=== PATIENT | female | born 1935 | race Caucasian/White ===

== ENCOUNTER 2024-07-05 13:39 | Emergency (ER) | payer OTHER ==
--- OUTSIDE RECORDS SUMMARY | 2024-07-05 13:43 | XMS REPORT | Continuity of Care Document ---
Author Name Unknown Address [address] [facility] [address] [place] [address] [facility] Address [address] [facility] [address] [place] [address] Care Team Providers Care Condominium Association Manager Name Role Phone KERRI JOHNSON Primary Care Physician Unavailab Kerri Mcintosh Attending Clinician Unavailable Shraddha Kaufman Attending Clinician Unavailable JOCELYNN GAINES Attending Clinician Unavail able EDIE MALONEY Attending Clinician Unavailab tico Maloney CABLE MAKEREdie Attending Clinician [phone] MARGARITA BOATENG Attending Clinician Unavailable MARGARITA BOATENG Attending Clinician Unavailable REEMA LINARES Attending Clinician Unavailable Kevin ARTILLERY SPECIALISTReema Attending Clinician [phone] Unknown, Attending Attending Clinician Unavailab Anthony Brambila Attending Clinician [phone] Unknown, Attending Attending Clinician Unavailab ANTHONY Garcia Attending Clinician Unavailable Doctor Unassigned, Harrod Attending Clinician U JOCELYNN Cary Admitting Clinician Unavail able Payers Payer Name Policy Type Policy Number Effective Date Expirati on Date Source [employer]US O [id number] 2023 00:00:00 Problems Condition Name Condition Details Condition Category Status Onset Date Resolution Date Last Treatment Date Treating Clinician Comments Source Generalize d abdominal pain Generalize d abdominal pain Disease Active 06-23 00:00: 00 [facility] Small bowel obstructio n, partial Small bowel obstructio n, partial Disease Active 06-23 00:00: 00 [facility] Abdominal malignancy Abdominal malignancy Disease Active 06-23 00:00: 00 [facility] [id number] Tinnitus of both ears Problem [facility] [id number] Mixed hyperlipid emia Problem [facility] [id number] History of arthroplas ty of left knee Problem [facility] [id number] Varicose veins with swelling Problem [facility] [id number] Seasonal allergies Problem [facility] [id number] Depression with anxiety Problem [facility] [id number] Acquired hypothyroi dism Problem [facility] [id number] Primary hypertensi on Problem [facility] [id number] Bladder spasm Problem [facility] Allergies, Adverse Reactions, Alerts Allergy Name Allergy Type Status Severity Reaction(s) Onset Date Inactive Date Treating Clinician Comments Source NO KNOWN ALLERGIE S Drug Class Active [facility] Social History Social Habit Start Date Stop Date Quantity Comments Source Sexual orientation U [facility] History of Tobacco Use [facility] Sex assigned at 1935 00:00:00 1935 00:00:00 [facility] Smoking Status Start Date Stop Date Source Tobacco smoking consumption unknown [facility] Never Smoker [facility] Medications Ordered Medication Name Filled Medication Name Start Date Stop Date Current Medication? Ordering Clinician Indication Dosage Frequency Signature (SIG) Comments Components Source iopamidol (ISOVUE 370-500 mL) injection 79 mL 06-23 21:30: 00 06-23 20:20 :00 No [id number] 79mL 79 mL, Intravenou s, ONCE, 1 dose, On Sun06/23/24 at 1530, Routine [facility] NaCl 0.9% (NS) bolus infusion 500 mL 06-23 19:00: 00 06-23 20:34 :00 No 500mL at 999 mL/hr, 500 mL, IV Infusion, ONCE, 1 dose, On Sun06/23/24 at 1300, YARELIS [facility] iopamidol (ISOVUE 370-500 mL) injection 84 mL 06-23 18:16: 00 06-23 18:30 :00 No [id number] 84mL 84 mL, Intravenou s, ONCE, 1 dose, On Sun06/23/24 at 1230, Routine [facility] ondansetron (ZOFRAN (PF)) injection 4 mg 06-23 17:15: 00 06-23 17:24 :00 No 4mg 4 mg, Slow IV Push, ONCE, 1 dose, On Sun06/23/24 at 1115, Administer over 2-5 Minutes, 2 mL [facility] cefTRIAXone (ROCEPHIN) injection 1,000 mg 06-14 23:00: 00 06-14 22:12 :00 No [id number] 1000mg [facility] amoxicillin -clavulanat e (AUGMENTIN) 875-125 mg per tablet 06-14 00:00: 00 06-24 05:59 :00 No [id number] 1{tbl} Take 1 tablet by mouth in the morning and 1 tablet in the evening. Do all this for 10 days. [facility] Losartan Potassium 100 MG Losartan Potassium 100 MG No 1{table t} QD Losartan Potassium 100 MG Levothyroxi ne Sodium 25 MCG Levothyroxi ne Sodium 25 MCG No QD Levothyrox ine Sodium 25 MCG hydroCHLORO thiazide 25 MG hydroCHLORO thiazide 25 MG No 1{table t_in_th e_morni ng} QD hydroCHLOR Othiazide 25 MG amLODIPine Besylate 5 MG amLODIPine Besylate 5 MG No 1{table t} QD amLODIPine Besylate 5 MG Venlafaxine HCl ER 75 MG Venlafaxine HCl ER 75 MG No 1{capsu le_with _food} QD Venlafaxin e HCl ER 75 MG Venlafaxine HCl ER 150 MG Venlafaxine HCl ER 150 MG No 1{capsu le_with _food} QD Venlafaxin e HCl ER 150 MG Tolterodine Tartrate 2 MG Tolterodine Tartrate 2 MG No 1{table t} BID Tolterodin e Tartrate 2 MG Simvastatin 40 MG Simvastatin 40 MG No 1{table t_in_th e_eveni ng} QD Simvastati n 40 MG Vital Signs Vital Name Observation Time Observation Value Comments Nikos forde Systolic blood pressure 2024-06-24 00:30:00 173 mm[Hg] [facility] Diastolic blood pressure 2024-06-24 00:30:00 83 mm[Hg] [facility] Heart rate 2024-06-24 00:30:00 114 /min [facility] Respiratory rate 2024-06-24 00:30:00 20 /min [facility] Oxygen saturation in Arterial blood by Pulse oximetry 2024-06-24 00:30:00 92 /min [facility] Body temperature 2024-06-23 17:00:00 36.72 Kyara [facility] Body height 2024-06-23 17:00:00 152.4 cm [facility] Body weight 2024-06-23 17:00:00 47.628 kg [facility] BMI 2024-06-23 17:00:00 20.51 kg/m2 [facility] height 2024-04-24 11:00:00 60 [in_i] Commo n [facility] weight 2024-04-24 11:00:00 110 [lb_av] Comm on [facility] bmi 2024-04-24 11:00:00 21.48 kg/m2 Comm on [facility] Body weight 2024-04-05 20:59:00 51.427 kg [facility] BMI 2024-04-05 20:59:00 22.14 kg/m2 [facility] Oxygen saturation in Arterial blood by Pulse oximetry 2024-04-05 20:59:00 97 /min [facility] Systolic blood pressure 2024-04-05 20:59:00 149 mm[Hg] [facility] Diastolic blood pressure 2024-04-05 20:59:00 79 mm[Hg] [facility] Heart rate 2024-04-05 20:59:00 97 /min [facility] Body temperature 2024-04-05 20:59:00 36.17 Kyara [facility] Respiratory rate 2024-04-05 20:59:00 17 /min [facility] Body height 2024-04-05 20:59:00 152.4 cm [facility] height 2023-12-25 13:00:00 60 [in_i] Commo n [facility] weight 2023-12-25 13:00:00 114 [lb_av] Comm on [facility] temperature 2023-12-25 13:00:00 97.2 [degF] Com mon [facility] bmi 2023-12-25 13:00:00 22.26 kg/m2 Comm on [facility] oximetry 2023-12-25 13:00:00 99 % Commo n [facility] respiratory rate 2023-12-25 13:00:00 16 /min Common [facility] blood pressure systolic 2023-12-25 13:00:00 126 mm[Hg] Common [facility] blood pressure diastolic 2023-12-25 13:00:00 64 mm[Hg] Common [facility] height 2023-12-25 13:00:00 60 [in_i] Commo n [facility] weight 2023-12-25 13:00:00 114 [lb_av] Comm on [facility] temperature 2023-12-25 13:00:00 97.2 [degF] Com [facility] bmi 2023-12-25 13:00:00 22.26 kg/m2 Comm on [facility] oximetry 2023-12-25 13:00:00 99 % Commo n [facility] respiratory rate 2023-12-25 13:00:00 16 /min [facility] blood pressure systolic 2023-12-25 13:00:00 126 mm[Hg] [facility] blood pressure diastolic 2023-12-25 13:00:00 64 mm[Hg] [facility] height 2023-12-25 13:00:00 60 [in_i] Commo n [facility] weight 2023-12-25 13:00:00 114 [lb_av] Comm on [facility] temperature 2023-12-25 13:00:00 97.2 [degF] Com mon [facility] bmi 2023-12-25 13:00:00 22.26 kg/m2 Comm on [facility] oximetry 2023-12-25 13:00:00 99 % Commo n [facility] respiratory rate 2023-12-25 13:00:00 16 /min [facility] blood pressure systolic 2023-12-25 13:00:00 126 mm[Hg] [facility] blood pressure diastolic 2023-12-25 13:00:00 64 mm[Hg] [facility] height 2023-11-05 11:00:00 60 [in_i] Commo n [facility] weight 2023-11-05 11:00:00 122.4 [lb_av] Co mmon [facility] temperature 2023-11-05 11:00:00 97.3 [degF] Com mon [facility] bmi 2023-11-05 11:00:00 23.9 kg/m2 Commo n [facility] oximetry 2023-11-05 11:00:00 98 % Commo n [facility] respiratory rate 2023-11-05 11:00:00 16 /min Common [facility] blood pressure systolic 2023-11-05 11:00:00 124 mm[Hg] [facility] blood pressure diastolic 2023-11-05 11:00:00 58 mm[Hg] Common [facility] height 2023-07-06 10:40:00 60 [in_i] Commo n [facility] weight 2023-07-06 10:40:00 123.4 [lb_av] Co mmon [facility] temperature 2023-07-06 10:40:00 97.3 [degF] Com mon [facility] bmi 2023-07-06 10:40:00 24.1 kg/m2 Commo n [facility] oximetry 2023-07-06 10:40:00 98 % Comm n [facility] respiratory rate 2023-07-06 10:40:00 16 /min Common [facility] blood pressure systolic 2023-07-06 10:40:00 134 mm[Hg] [facility] blood pressure diastolic 2023-07-06 10:40:00 62 mm[Hg] [facility] Systolic blood pressure 2023-06-14 22:01:00 153 mm[Hg] [facility] Diastolic blood pressure 2023-06-14 22:01:00 74 mm[Hg] [facility] Heart rate 2023-06-14 22:00:00 99 /min [facility] Body temperature 2023-06-14 22:00:00 36.56 Kyara [facility] Respiratory rate 2023-06-14 22:00:00 14 /min [facility] Body height 2023-06-14 22:00:00 149.9 cm [facility] Body weight 2023-06-14 22:00:00 55.157 kg [facility] BMI 2023-06-14 22:00:00 24.56 kg/m2 [facility] Oxygen saturation in Arterial blood by Pulse oximetry 2023-06-14 22:00:00 98 /min [facility] height 2023-03-23 16:00:00 60 [in_i] Commo n [facility] weight 2023-03-23 16:00:00 119 [lb_av] Comm on [facility] temperature 2023-03-23 16:00:00 97.2 [degF] Com mon [facility] bmi 2023-03-23 16:00:00 23.24 kg/m2 Comm on [facility] oximetry 2023-03-23 16:00:00 97 % Commo n [facility] respiratory rate 2023-03-23 16:00:00 16 /min [facility] blood pressure systolic 2023-03-23 16:00:00 130 mm[Hg] [facility] blood pressure diastolic 2023-03-23 16:00:00 66 mm[Hg] [facility] height 2022-12-22 15:20:00 60 [in_i] Commo n [facility] weight 2022-12-22 15:20:00 120 [lb_av] Comm on [facility] temperature 2022-12-22 15:20:00 97.3 [degF] Com [facility] bmi 2022-12-22 15:20:00 23.43 kg/m2 Comm on [facility] oximetry 2022-12-22 15:20:00 99 % Commo n [facility] respiratory rate 2022-12-22 15:20:00 16 /min [facility] blood pressure systolic 2022-12-22 15:20:00 126 mm[Hg] [facility] blood pressure diastolic 2022-12-22 15:20:00 64 mm[Hg] [facility] height 2022-12-22 15:40:00 60 [in_i] Commo n [facility] weight 2022-12-22 15:40:00 120 [lb_av] Comm on [facility] temperature 2022-12-22 15:40:00 97.3 [degF] Com [facility] bmi 2022-12-22 15:40:00 23.43 kg/m2 Comm on [facility] oximetry 2022-12-22 15:40:00 99 % Commo n [facility] respiratory rate 2022-12-22 15:40:00 16 /min Common [facility] blood pressure systolic 2022-12-22 15:40:00 126 mm[Hg] [facility] blood pressure diastolic 2022-12-22 15:40:00 64 mm[Hg] [facility] height 2022-07-25 13:20:00 60 [in_i] Commo n [facility] weight 2022-07-25 13:20:00 118.4 [lb_av] Co mmon [facility] temperature 2022-07-25 13:20:00 98.3 [degF] Com [facility] bmi 2022-07-25 13:20:00 23.12 kg/m2 Comm on [facility] oximetry 2022-07-25 13:20:00 97 % Commo n [facility] respiratory rate 2022-07-25 13:20:00 17 /min [facility] blood pressure systolic 2022-07-25 13:20:00 128 mm[Hg] [facility] blood pressure diastolic 2022-07-25 13:20:00 66 mm[Hg] [facility] height 2022-03-24 16:00:00 60 [in_i] Commo n [facility] weight 2022-03-24 16:00:00 120.0 [lb_av] Co mmon [facility] temperature 2022-03-24 16:00:00 98.4 [degF] Com [facility] bmi 2022-03-24 16:00:00 23.43 kg/m2 Comm on [facility] oximetry 2022-03-24 16:00:00 97 % Commo n [facility] respiratory rate 2022-03-24 16:00:00 15 /min Common [facility] blood pressure systolic 2022-03-24 16:00:00 130 mm[Hg] [facility] blood pressure diastolic 2022-03-24 16:00:00 64 mm[Hg] [facility] height 2021-11-22 16:00:00 60 [in_i] Commo n [facility] weight 2021-11-22 16:00:00 119.4 [lb_av] Co mmon [facility] temperature 2021-11-22 16:00:00 98.2 [degF] Com [facility] bmi 2021-11-22 16:00:00 23.32 kg/m2 Comm on [facility] oximetry 2021-11-22 16:00:00 97 % Commo n [facility] respiratory rate 2021-11-22 16:00:00 16 /min [facility] blood pressure systolic 2021-11-22 16:00:00 128 mm[Hg] [facility] blood pressure diastolic 2021-11-22 16:00:00 61 mm[Hg] [facility] height 2021-11-22 16:20:00 60 [in_i] Commo n [facility] weight 2021-11-22 16:20:00 119.4 [lb_av] Co mmon [facility] temperature 2021-11-22 16:20:00 98.2 [degF] Com mon [facility] bmi 2021-11-22 16:20:00 23.32 kg/m2 Comm on [facility] oximetry 2021-11-22 16:20:00 97 % Commo n [facility] respiratory rate 2021-11-22 16:20:00 16 /min [facility] blood pressure systolic 2021-11-22 16:20:00 128 mm[Hg] [facility] blood pressure diastolic 2021-11-22 16:20:00 61 mm[Hg] [facility] Procedures Procedure Date / Time Performed Performing Clinicia n Source CT ANGIOGRAM ABDOMEN/PELVIS 2024-06-23 20:34:24 Edie Maloney [facility] URINALYSIS 2024-06-23 20:34:00 Edie Maloney Un [facility] CT ABDOMEN PELVIS W CONTRAST 2024-06-23 18:21:05 Edie Maloney [facility] LIPASE 2024-06-23 17:18:00 Edie Maloney Un [facility] COMP. METABOLIC PANEL ([id number]) 2024-06-23 17:18:00 Edie Maloney [facility] CBC WITH DIFF 2024-06-23 17:18:[address] [facility] [facility]+ VW RIGHT 2024-04-05 21:31:44 Reema Linares [facility] ASSIGNMENT OF BENEFITS 2023-06-14 22:37:14 Docto r Unassigned, Harrod [facility] Encounters Start Date/Time End Date/Time Encounter Type Admission Type Attending Clinicians Care Facility Care Department Encounter ID Source 2023-03-22 13:59:01 [facility] [id number] [facility] 2022-07-24 14:05:02 [facility] [id number] [facility] 2022-03-23 14:02:01 Outpatient Shraddha Kaufman [facility] [id number] [facility] 2022-03-22 13:50:04 Outpatient Shraddha Kaufman [facility] [id number] [facility] 2021-11-22 15:45:02 Outpatient Shraddha Kaufman [facility] [id number] [facility] 2024-06-30 00:00:2024-06-30 00:00:00 (TEL) STLC ST[facility] [id number] [facility] 2024-06-23 20:04:00 2024-06-27 18:00:00 Inpatient JOCELYNN ROACH [facility] SANA [id number] [facility] 2024-06-24 00:00:00 2024-06-24 00:00:00 (TEL) STLC STLC [id number] [facility] 2024-06-23 11:04:00 2024-06-23 18:57:00 Emergency X EDIE MALONEY [facility] ERT [id number] [facility] 2024-06-23 11:04:00 2024-06-23 18:57:00 Emergency [facility] 1..840.114 350.1.13.10 [id number] [facility] 2024-04-24 13:00:00 2024-04-24 13:00:00 Outpatient MARGARITA LYON [facility]LE[facility] [id number] [facility] 2024-04-24 00:00:00 2024-04-24 00:00:00 OFFICE VISIT ESTAB PT LEVEL 4 [facility] [id number] [facility] 2024-04-24 00:00:00 2024-04-24 00:00:00 (TEL) [facility] [id number] [facility] 2024-04-05 15:25:39 2024-04-05 23:59:00 Outpatient R REEMA LINARES [facility] [id number] [facility] 2024-04-05 15:25:39 2024-04-05 23:59:00 Hospital Encounter Reema Linares [facility] 1..840.114 350.1.13.10 [id number] [facility] 2024-04-05 15:00:00 2024-04-05 16:07:19 Urgent Care Reema Linares Unknown, Attending [facility] 1..840.114 350.1.13.10 [id number] [facility] 2023-12-25 00:00:00 2023-12-25 00:00:00 SUB ANNUAL [facility] VIS[facility] STLMLC STL[facility]C [id number] [facility] 2023-12-25 00:00:00 2023-12-25 00:00:00 OFFICE VISIT ESTAB PT LEVEL 4 [facility]C STLMLC [id number] [facility] 2023-11-05 00:00:00 2023-11-05 00:00:00 OFFICE VISIT ESTAB PT LEVEL 4 [facility]C STLMLC [id number] [facility] 2023-07-06 00:00:00 2023-07-06 00:00:00 OFFICE VISIT ESTAB PT LEVEL 4 STLMLC STLMLC [id number] [facility] 2023-06-14 16:00:00 2023-06-14 16:20:00 Urgent Care JuddjacAnthony duarte Unknown, Attending [facility] 1..840.114 350.1.13.10 [id number] [facility] 2023-06-14 16:00:00 2023-06-14 16:00:00 Outpatient R ANTHONY CHIRINOS [facility] [id number] [facility] 2023-06-14 00:00:00 2023-06-14 00:00:00 Orders Only Doctor Unassigned, Harrod [facility] 1..840.114 350.1.13.10 [id number] [facility] 2023-03-27 00:00:00 2023-03-27 00:00:00 (TEL) STLMLC STLMLC [id number] [facility] 2023-03-26 00:00:00 2023-03-26 00:00:00 (TEL) STLMLC STLMLC [id number] [facility] 2023-03-23 00:00:00 2023-03-23 00:00:00 OFFICE VISIT ESTAB PT LEVEL 4 STLMLC STLMLC [id number] [facility] 2022-12-22 00:00:00 2022-12-22 00:00:00 OFFICE VISIT ESTAB PT LEVEL 3 STLMLC STLMLC [id number] [facility] 2022-12-22 00:00:00 2022-12-22 00:00:00 SUB ANNUAL MCR WELLNESS VISIT STLMLC STLMLC [id number] [facility] 2022-08-10 00:00:00 2022-08-10 00:00:00 (TEL) STLMLC STLMLC [id number] [facility] 2022-08-03 00:00:00 2022-08-03 00:00:00 (TEL) STLMLC STLMLC [id number] [facility] 2022-07-25 00:00:00 2022-07-25 00:00:00 OFFICE VISIT ESTAB PT LEVEL 4 STLMLC STLMLC [id number] [facility] 2022-05-12 00:00:00 2022-05-12 00:00:00 (TEL) STLMLC STLMLC [id number] [facility] 2022-03-24 00:00:00 2022-03-24 00:00:00 OFFICE VISIT EST PT LEVEL 3 STLMLC STLMLC [id number] [facility] 2021-11-22 00:00:00 2021-11-22 00:00:00 SUB ANNUAL MCR WELLNESS VISIT STLMLC STLMLC [id number] [facility] 2021-11-22 00:00:00 2021-11-22 00:00:00 OFFICE VISIT EST PT LEVEL 3 [facility] [id number] [facility] Results Test Description Test Time Test Comments Results Result Comments Source CT Angiogram abdomen/pelvis 22:58:01 EXAM: CT ANGIOGRAM ABDOMEN/PELVIS HISTORY: 89 years old Female with Hemoperitoneum on CT abdomen and pelvis COMPARISON: CT abdomen pelvis with contrast 06/23/2024 TECHNIQUE AND FINDINGS: Axial images of the abdomen and pelvis wereobtained without intravenous contrast followed by contrast-enhanced CTangiogram in the arterial and venous phases of the abdomen and pelvis. FINDINGS: LOWER THORAX: Partially visualized mediastinal and hilar calcified lymphnodes, could be sequela of calcified granulomatous disease. Moderate rightpleural effusion with adjacent lower lobe partial atelectasis. Right middlelobe atelectasis. LIVER: Liver is normal in size and nodularity along the posterior wallright hepatic lobe, could represent implants. Patchy and linear smallhyperdensity in the subcapsular region of the left hepatic lobe is seenonly seen on arterial phase, may represent perfusional changes orintrahepatic shunt. Multiple hepatic subcapsular punctate calcifications,given location, could represent calcified implants, although difficult todifferentiate from calcified granulomas. GALLBLADDER AND BILIARY TREE: The gallbladder is distended and tortuouswith a transverse diameter of 3 cm. No biliary ductal dilation. ?Nogallbladder wall thickening. SPLEEN: No splenomegaly. Multiple small calcified granulomas. PANCREAS: No ductal dilation moderate fatty infiltration of parenchyma. ADRENAL GLANDS: Thickening of the left adrenal gland. 1.3 cm right adrenalnodule with arterial enhancement and delayed washout, indeterminate. KIDNEYS: Excreted contrast is seen within collecting system. Nohydronephrosis. A 0.8 cm right renal lesion with some enhancement, couldrepresent a solid mass or complex cyst. GI TRACT: PERITONEUM AND RETROPERITONEUM AND PELVIS: No free air. There ishyperdense omental thickening, largest component measuring 6.3 x 1.4 x 4cm. Multiple additional hyperdense peritoneal and mesenteric soft tissuesin close relation to the bowel for example an irregular shape soft tissuesin the posterior pelvis as well as surrounding sigmoid and clustered ofsmall bowel in the pelvis. There is tethered appearance of bowel in thisregion (25:101). Trace perihepatic and pelvic ascites. There is dilatationof the small bowel loops in the pelvis measuring up to 3 cm, proximal withtransition (19:84) at the above-mentioned peritoneal soft tissue associatedwith clustered small bowel. Additional peritoneal upper noncalcifiedperitoneal implants are noted. The uterus is absent. At the expected location of the right ovary, there marcos 4 x 2.8 x 2.6 cm solid and cystic mass (19:101). In the left hemipelvisat the expected location of ovary, there is a heterogeneous complex cysticand solid soft tissue mass, measuring 2.7 x 3.9 x 4.2 cm (19:101).Contiguous with this mass, an elongated tubular soft tissue mass extendsinto the left inguinal region, along the course of the round ligament,measuring 1.4 x 8 cm (19:103, 29:67). These 2 adnexal masses, arecontiguous with the peritoneal/subserosal mass which is involving smallbowel and sigmoid colon. Small volume ascites is present. Note that increased density of the ascitescompared to the prior imaging today is related to a delayed enhancement ofascites. LYMPH NODES: 0.8 cm left gastric lymph node gastric lymph node,indeterminate. Lymph nodes are noted, nonspecific. ?A couple of smallinguinal lymph nodes up to 8mm, nonspecific. VESSELS: Severe calcified plaques involving abdominal aorta. Marked ostialcalcification of celiac trunk, SMA, and bilateral renal arteries with atleast moderate to severe left renal artery stenosis. No aneurysm orcritical stenosis pain BONES AND SOFT TISSUES: No suspicious lytic or sclerotic bony lesions. [facility] CT ABDOMEN PELVIS W CONTRAST 21:55:04 EXAM: CT ABDOMEN PELVIS W CONTRAST 06/23/2024 12:20 PM HISTORY: 89 years-old Female with Abdominal pain, acute, nonlocalized . COMPARISON: None. TECHNIQUE: Contiguous axial imaging from the level of the lung basesthrough the proximal thighs was performed after the administration ofintravenous nonionic iodinated contrast. Abdomen was scanned in venousphase. Corresponding coronal and sagittal MPR reconstructions wereobtained. ?Auto mA and/or iterative reconstruction were used to reduceradiation dose. FINDINGS: LOWER THORAX: ?Partially visualized atelectatic right middle lobe. Moderate right pleural effusion. Multiple calcified mediastinal lymph nodeslikely indicates prior granulomatous disease. A 4 mm left lower lobe lungnodule could also be sequela of chronic granulomatous disease. LIVER AND BILIARY: ?The liver is normal in size with slightly nodularcontour. 2 subcentimeter hepatic dome hypodensities, too small tocharacterize. The gallbladder appears unremarkable. No radiopaquegallstones are seen. No intra or extrahepatic biliary ductal dilation isvisualized. PANCREAS: Normal morphology and enhancement. No ductal dilation or massesare visualized. SPLEEN: The spleen appears unremarkable apart from multiple small calcifiedgranulomas. ADRENAL GLANDS: 1.3 cm rim-enhancing right adrenal mass may represent acyst. KIDNEYS, URETERS, AND BLADDER: ?Normal renal size, morphology, andenhancement. No solid masses. No stones or hydronephrosis. The bladder isadequately distended and appears unremarkable. REPRODUCTIVE ORGANS: Normal reproductive organs. GI TRACT AND PERITONEUM: The distal small bowel loops in the pelvis arefluid-filled slightly distended measuring up to 2.5 cm. There is hyperdenseomental thickening, largest component measuring 6.3 x 1.4 x 4 cm. Multipleadditional hyperdense peritoneal and mesenteric soft tissues in closerelation to the bowel for example in the posterior lower as well as pelvisalong the sigmoid wall which are probably results in thickening of thesigmoid wall.. The soft tissues are either linear and branching or patchyand nodular. There is no bowel obstructionThe appendix appears unremarkable. No intra-abdominal free air isvisualized. tion. Trace free fluid in the pelvis which likely representshemoperitoneum.S mall volume perihepatic and pelvic ascites. VESSELS: Portal, splenic, and superior mesenteric veins are patent.Visceral arteries are patent. No abdominal aortic aneurysm. Moderate tosevere atherosclerotic calcifications. LYMPH NODES: Lymph nodes in the retroperitoneal, mesenteric, and iliacareas are not enlarged. BONES AND SOFT TISSUES: No suspicious sclerotic or lytic osseous lesions.No fractures. Multilevel disc space and facet arthropathies evidenced byosteophytosis, joint space narrowing, and vacuum phenomena. [facility] Test Item Value Reference Range Interpretation Comme nts LIPASE (test code = 5993959610) 55 U/L 0-220 Lab Interpretation (test cod e = 45969-8) [facility] [id number] 17:41:56* Test Item Value Reference Range Interpretation Comme nts WBC (test code = 6690-2) 10.32 4.30-11.10 RBC (test code = 789-8) 5.59 3.93-5.25 H HGB (test code = 718-7) 14.9 g/dL 11.6-15.0 HCT (test code = 4544-3) 46.1 % 35.7-45.2 H MCV (test code = 787-2) 82.5 fL 80.6-95.5 MCH (test code = 785-6) 26.7 pg 25.9-32.8 MCHC (test code = 786-4) 32.3 g/dL 31.6-35.1 RDW-SD (test code = 25099-7) 44.8 fL 39.0-49.9 RDW-CV (test code = 788-0) 15.1 % 12.0-15.5 PLT (test code = 777-3) 519 166-358 H MPV (test code = 05224-9) 10.6 fL 9.5-12.9 NRBC/100 WBC (test code = 7183896928) 0.0 0.0-10.0 NRBC x10^3 (test code = 6625898667) See_Comment [Automated messa ge] The system which generated this result transmitted reference range: 10*3/?L. The reference range was not used to interpret this result as normal/abnormal. GRAN MAT (NEUT) % (test code = 770-8) 79.5 % IMM GRAN % (test code = 9531113057) 0.40 % LYMPH % (test code = 736-9) 13.1 % MONO % (test code = 5905-5) 6.3 % EOS % (test code = 713-8) 0.2 % BASO % (test code = 706-2) 0.5 % GRAN MAT x10^3(ANC) (test code = 0401551888) 8.21 10*3/uL 1.88-7.09 H IMM GRAN x10^3 (test code = 3102114036) 0.04 10*3/uL 0.00-0.06 LYMPH x10^3 (test code = 731-0) 1.35 10*3/uL 1.32-3.29 MONO x10^3 (test code = 742-7) 0.65 10*3/uL 0.33-0.92 EOS x10^3 (test code = 711-2) 0.03-0.39 L BASO x10^3 (test code = 704-7) 0.05 10*3/uL 0.01-0.07 Lab Interpretation (test code = 63015-3) Abnormal [facility] [id number] 00:00:00* Test Item Value Reference Range Interpretation Comme nts NUCLEATED RBCS (test code = 66454-4) 0.0 /100 WBC'S See_Comment [Automated message] The system which generated this result transmitted reference range: 0.0 /100 WBC'S. The reference range was not used to interpret this result as normal/abnormal. ABSOLUTE EOSINOPHILS (test code = 89333-6) 0.14 K/UL See_Comment [Automated message] The system which generated this result transmitted reference range: 0.00-0.50 K/UL. The reference range was not used to interpret this result as normal/abnormal. ABSOLUTE LYMPHOCYTES (test code = 03451-6) 1.55 K/UL See_Comment [Automated message] The system which generated this result transmitted reference range: 1.00-4.00 K/UL. The reference range was not used to interpret this result as normal/abnormal. ABSOLUTE MONOCYTES (test code = 25424-7) 0.49 K/UL See_Comment [Automated message] The system which generated this result transmitted reference range: 0.20-1.00 K/UL. The reference range was not used to interpret this result as normal/abnormal. ABSOLUTE NEUTROPHILS (test code = 06844-6) 3.45 K/UL See_Comment [Automated message] The system which generated this result transmitted reference range: 1.50-7.50 K/UL. The reference range was not used to interpret this result as normal/abnormal. BASOPHILS (test code = 61608-8) 1.2 % EOSINOPHILS (test code = 57960-5) 2.4 % HEMATOCRIT (test code = 39831-8) 39.2 % See_Comment [Automated [employer]] The system which generated this result transmitted reference range: 34.0-45.0 %. The reference range was not used to interpret this result as normal/abnormal. HEMOGLOBIN (test code = 718-7) 12.7 G/DL See_Comment [Automated messa ge] The system which generated this result transmitted reference range: 11.5-15.5 G/DL. The reference range was not used to interpret this result as normal/abnormal. LYMPHOCYTES (test code = 31623-7) 27.1 % MCH (test code = 49199-6) 26.5 PG See_Comment [Automated messa ge] The system which generated this result transmitted reference range: 25.0-33.0 PG. The reference range was not used to interpret this result as normal/abnormal. MCHC (test code = 42073-6) 32.4 G/DL See_Comment [Automated messa ge] The system which generated this result transmitted reference range: 31.0-36.0 G/DL. The reference range was not used to interpret this result as normal/abnormal. MCV (test code = 50850-2) 81.7 fL See_Comment [Automated messa ge] The system which generated this result transmitted reference range: 80.0-99.0 fL. The reference range was not used to interpret this result as normal/abnormal. MONOCYTES (test code = 12978-1) 8.6 % NEUTROPHILS (test code = 18059-6) 60.4 % PLATELET COUNT (test code = 87403-5) 483 K/UL See_Comment H [Automated messa ge] The system which generated this result transmitted reference range: 130-400 K/UL. The reference range was not used to interpret this result as normal/abnormal. RBC (test code = 95760-3) 4.80 M/UL See_Comment [Automated messa ge] The system which generated this result transmitted reference range: 3.80-5.40 M/UL. The reference range was not used to interpret this result as normal/abnormal. RDW (test code = 21439-5) 13.5 % See_Comment [Automated messa ge] The system which generated this result transmitted reference range: 11.5-15.0 %. The reference range was not used to interpret this result as normal/abnormal. WBC (test code = 79778-5) 5.7 K/UL See_Comment [Automated [employer]] The system which generated this result transmitted reference range: 3.5-11.0 K/UL. The reference range was not used to interpret this result as normal/abnormal. CALC LDL CHOL (test code = 06506-1) 94 MG/DL See_Comment [Automated [employer]] The system which generated this result transmitted reference range: <100 MG/DL. The reference range was not used to interpret this result as normal/abnormal. CHOLESTEROL (test code = 2093-3) 170 MG/DL See_Comment [Automated [employer]] The system which generated this result transmitted reference range: <200 MG/DL. The reference range was not used to interpret this result as normal/abnormal. HDL CHOLESTEROL (test code = 2085-9) 55 MG/DL See_Comment [Automated [employer]] The system which generated this result transmitted reference range: >39 MG/DL. The reference range was not used to interpret this result as normal/abnormal. RISK RATIO LDL/HDL (test code = 83075-2) 1.71 RATIO See_Comment [Automated message] The system which generated this result transmitted reference range: <3.22 RATIO. The reference range was not used to interpret this result as normal/abnormal. TRIGLYCERIDES (test code = 2571-8) 114 MG/DL See_Comment [Automated [employer]] The system which generated this result transmitted reference range: <150 MG/DL. The reference range was not used to interpret this result as normal/abnormal. FREE T4 (THYROXINE) (test code = 3024-7) 1.35 NG/DL See_Comment [Automated message] The system which generated this result transmitted reference range: 0.80-1.90 NG/DL. The reference range was not used to interpret this result as normal/abnormal. TSH, THIRD GENERATION (test code = 96424-4) 5.970 UIU/ML See_Comment H [Automated message] The system which generated this result transmitted reference range: 0.400-4.100 UIU/ML. The reference range was not used to interpret this result as normal/abnormal. ALBUMIN (test code = 1751-7) 4.0 G/DL See_Comment [Automated [employer]] The system which generated this result transmitted reference range: 3.5-5.2 G/DL. The reference range was not used to interpret this result as normal/abnormal. ALKALINE PHOSPHATASE (test code = 6768-6) 74 U/L See_Comment [Automated message] The system which generated this result transmitted reference range: 40-142 U/L. The reference range was not used to interpret this result as normal/abnormal. BILIRUBIN, TOTAL (test code = 1975-2) 0.3 MG/DL See_Comment [Automated messa ge] The system which generated this result transmitted reference range: <=1.2 MG/DL. The reference range was not used to interpret this result as normal/abnormal. BUN (test code = 3094-0) 18 MG/DL See_Comment [Automated messa ge] The system which generated this result transmitted reference range: 8-23 MG/DL. The reference range was not used to interpret this result as normal/abnormal. CALCIUM (test code = 90293-3) 9.2 MG/DL See_Comment [Automated messa ge] The system which generated this result transmitted reference range: 8.5-10.5 MG/DL. The reference range was not used to interpret this result as normal/abnormal. CALC A/G RATIO (test code = 1759-0) 1.7 RATIO See_Comment [Automated messa ge] The system which generated this result transmitted reference range: 1.0-2.6 RATIO. The reference range was not used to interpret this result as normal/abnormal. CALC BUN/CREAT (test code = 3097-3) 26 RATIO See_Comment [Automated messa ge] The system which generated this result transmitted reference range: 6-28 RATIO. The reference range was not used to interpret this result as normal/abnormal. CALC GLOBULIN (test code = 04094-3) 2.3 G/DL See_Comment [Automated messa ge] The system which generated this result transmitted reference range: 1.9-3.7 G/DL. The reference range was not used to interpret this result as normal/abnormal. CARBON DIOXIDE (test code = 1963-8) 24 MEQ/L See_Comment [Automated messa ge] The system which generated this result transmitted reference range: 19-31 MEQ/L. The reference range was not used to interpret this result as normal/abnormal. CHLORIDE (test code = 2075-0) 104 MEQ/L See_Comment [Automated messa ge] The system which generated this result transmitted reference range: 95-107 MEQ/L. The reference range was not used to interpret this result as normal/abnormal. CREATININE (test code = 2160-0) 0.68 MG/DL See_Comment [Automated messa ge] The system which generated this result transmitted reference range: 0.60-1.30 MG/DL. The reference range was not used to interpret this result as normal/abnormal. eGFR (2020 CKD-EPI) (test code = 56624-0) 84 ML/MIN/1.73 See_Comment [Automated message] The system which generated this result transmitted reference range: >60 ML/MIN/1.73. The reference range was not used to interpret this result as normal/abnormal. GLUCOSE (test code = 1558-6) 90 MG/DL See_Comment [Automated messa ge] The system which generated this result transmitted reference range: 70-99 MG/DL. The reference range was not used to interpret this result as normal/abnormal. POTASSIUM (test code = 2823-3) 4.4 MEQ/L See_Comment [Automated messa ge] The system which generated this result transmitted reference range: 3.5-5.4 MEQ/L. The reference range was not used to interpret this result as normal/abnormal. PROTEIN, TOTAL (test code = 2885-2) 6.3 G/DL See_Comment [Automated messa ge] The system which generated this result transmitted reference range: 6.1-8.3 G/DL. The reference range was not used to interpret this result as normal/abnormal. AST (test code = 1920-8) 28 U/L See_Comment [Automated messa ge] The system which generated this result transmitted reference range: 9-40 U/L. The reference range was not used to interpret this result as normal/abnormal. ALT (test code = 1742-6) 13 U/L See_Comment [Automated messa ge] The system which generated this result transmitted reference range: 5-40 U/L. The reference range was not used to interpret this result as normal/abnormal. SODIUM (test code = 2951-2) 140 MEQ/L See_Comment [Automated messa ge] The system which generated this result transmitted reference range: 133-146 MEQ/L. The reference range was not used to interpret this result as normal/abnormal. XR Ankle 3+ vw [id number] 23:07:52ORDERING PHYSICIAN: REEMA LINARES HISTORY: Patient fell 2 weeks ago and continues with tenderness and swelling to lateral malleolus TECHNIQUE: 3 views right ankle COMPARISON: None FINDINGS: There is no acute fracture or dislocation. The ankle mortise is intact. ?There is no ankle joint effusion. Calcaneal spurring . Soft tissues are normal.[facility] [id number] 00:00:00* Test Item Value Reference Range Interpretation Comme nts NUCLEATED RBCS (test code = 87399-9) 0.0 /100 WBC'S See_Comment [Automated message] The system which generated this result transmitted reference range: 0.0 /100 WBC'S. The reference range was not used to interpret this result as normal/abnormal. ABSOLUTE EOSINOPHILS (test code = 75302-2) 0.25 K/UL See_Comment [Automated message] The system which generated this result transmitted reference range: 0.00-0.50 K/UL. The reference range was not used to interpret this result as normal/abnormal. ABSOLUTE LYMPHOCYTES (test code = 29309-4) 1.89 K/UL See_Comment [Automated message] The system which generated this result transmitted reference range: 1.00-4.00 K/UL. The reference range was not used to interpret this result as normal/abnormal. ABSOLUTE MONOCYTES (test code = 71286-1) 0.43 K/UL See_Comment [Automated message] The system which generated this result transmitted reference range: 0.20-1.00 K/UL. The reference range was not used to interpret this result as normal/abnormal. ABSOLUTE NEUTROPHILS (test code = 09234-3) 2.44 K/UL See_Comment [Automated message] The system which generated this result transmitted reference range: 1.50-7.50 K/UL. The reference range was not used to interpret this result as normal/abnormal. BASOPHILS (test code = 57529-8) 1.6 % EOSINOPHILS (test code = 94603-8) 4.9 % HEMATOCRIT (test code = 41529-1) 40.9 % See_Comment [Automated messa ge] The system which generated this result transmitted reference range: 34.0-45.0 %. The reference range was not used to interpret this result as normal/abnormal. HEMOGLOBIN (test code = 718-7) 13.3 G/DL See_Comment [Automated messa ge] The system which generated this result transmitted reference range: 11.5-15.5 G/DL. The reference range was not used to interpret this result as normal/abnormal. LYMPHOCYTES (test code = 19317-8) 37.1 % MCH (test code = 36562-2) 27.9 PG See_Comment [Automated messa ge] The system which generated this result transmitted reference range: 25.0-33.0 PG. The reference range was not used to interpret this result as normal/abnormal. MCHC (test code = 33656-0) 32.5 G/DL See_Comment [Automated messa ge] The system which generated this result transmitted reference range: 31.0-36.0 G/DL. The reference range was not used to interpret this result as normal/abnormal. MCV (test code = 91232-5) 85.9 fL See_Comment [Automated messa ge] The system which generated this result transmitted reference range: 80.0-99.0 fL. The reference range was not used to interpret this result as normal/abnormal. MONOCYTES (test code = 30596-9) 8.4 % NEUTROPHILS (test code = 62818-3) 47.8 % PLATELET COUNT (test code = 51494-9) 333 K/UL See_Comment [Automated messa ge] The system which generated this result transmitted reference range: 130-400 K/UL. The reference range was not used to interpret this result as normal/abnormal. RBC (test code = 74758-9) 4.76 M/UL See_Comment [Automated messa ge] The system which generated this result transmitted reference range: 3.80-5.40 M/UL. The reference range was not used to interpret this result as normal/abnormal. RDW (test code = 61112-2) 13.1 % See_Comment [Automated messa ge] The system which generated this result transmitted reference range: 11.5-15.0 %. The reference range was not used to interpret this result as normal/abnormal. WBC (test code = 35771-5) 5.1 K/UL See_Comment [Automated messa ge] The system which generated this result transmitted reference range: 3.5-11.0 K/UL. The reference range was not used to interpret this result as normal/abnormal. CALC LDL CHOL (test code = 63476-4) 98 MG/DL See_Comment [Automated [employer]] The system which generated this result transmitted reference range: <100 MG/DL. The reference range was not used to interpret this result as normal/abnormal. CHOLESTEROL (test code = 2093-3) 178 MG/DL See_Comment [Automated [employer]] The system which generated this result transmitted reference range: <200 MG/DL. The reference range was not used to interpret this result as normal/abnormal. HDL CHOLESTEROL (test code = 2085-9) 52 MG/DL See_Comment [Automated [employer] Holvi] The system which generated this result transmitted reference range: >39 MG/DL. The reference range was not used to interpret this result as normal/abnormal. RISK RATIO LDL/HDL (test code = 61272-7) 1.88 RATIO See_Comment [Automated message] The system which generated this result transmitted reference range: <3.22 RATIO. The reference range was not used to interpret this result as normal/abnormal. TRIGLYCERIDES (test code = 2571-8) 180 MG/DL See_Comment H [Automated [employer]] The system which generated this result transmitted reference range: <150 MG/DL. The reference range was not used to interpret this result as normal/abnormal. FREE T4 (THYROXINE) (test code = 3024-7) 1.17 NG/DL See_Comment [Automated message] The system which generated this result transmitted reference range: 0.80-1.90 NG/DL. The reference range was not used to interpret this result as normal/abnormal. TSH, THIRD GENERATION (test code = 70688-0) 3.760 UIU/ML See_Comment [Automated message] The system which generated this result transmitted reference range: 0.400-4.100 UIU/ML. The reference range was not used to interpret this result as normal/abnormal. ALBUMIN (test code = 1751-7) 4.4 G/DL See_Comment [Automated [employer]] The system which generated this result transmitted reference range: 3.5-5.2 G/DL. The reference range was not used to interpret this result as normal/abnormal. ALKALINE PHOSPHATASE (test code = 6768-6) 69 U/L See_Comment [Automated message] The system which generated this result transmitted reference range: 40-142 U/L. The reference range was not used to interpret this result as normal/abnormal. BILIRUBIN, TOTAL (test code = 1975-2) <0.2 MG/DL See_Comment [Automated messa ge] The system which generated this result transmitted reference range: <=1.2 MG/DL. The reference range was not used to interpret this result as normal/abnormal. BUN (test code = 3094-0) 14 MG/DL See_Comment [Automated messa ge] The system which generated this result transmitted reference range: 8-23 MG/DL. The reference range was not used to interpret this result as normal/abnormal. CALCIUM (test code = 26745-0) 9.5 MG/DL See_Comment [Automated messa ge] The system which generated this result transmitted reference range: 8.5-10.5 MG/DL. The reference range was not used to interpret this result as normal/abnormal. CALC A/G RATIO (test code = 1759-0) 2.0 RATIO See_Comment [Automated messa ge] The system which generated this result transmitted reference range: 1.0-2.6 RATIO. The reference range was not used to interpret this result as normal/abnormal. CALC BUN/CREAT (test code = 3097-3) 18 RATIO See_Comment [Automated messa ge] The system which generated this result transmitted reference range: 6-28 RATIO. The reference range was not used to interpret this result as normal/abnormal. CALC GLOBULIN (test code = 64633-2) 2.2 G/DL See_Comment [Automated messa ge] The system which generated this result transmitted reference range: 1.9-3.7 G/DL. The reference range was not used to interpret this result as normal/abnormal. CARBON DIOXIDE (test code = 1963-8) 28 MEQ/L See_Comment [Automated messa ge] The system which generated this result transmitted reference range: 19-31 MEQ/L. The reference range was not used to interpret this result as normal/abnormal. CHLORIDE (test code = 2075-0) 104 MEQ/L See_Comment [Automated [employer]] The system which generated this result transmitted reference range: 95-107 MEQ/L. The reference range was not used to interpret this result as normal/abnormal. CREATININE (test code = 2160-0) 0.79 MG/DL See_Comment [Automated messa ge] The system which generated this result transmitted reference range: 0.60-1.30 MG/DL. The reference range was not used to interpret this result as normal/abnormal. eGFR (2020 CKD-EPI) (test code = 12245-9) 72 ML/MIN/1.73 See_Comment [Automated message] The system which generated this result transmitted reference range: >60 ML/MIN/1.73. The reference range was not used to interpret this result as normal/abnormal. GLUCOSE (test code = 1558-6) 82 MG/DL See_Comment [Automated messa ge] The system which generated this result transmitted reference range: 70-99 MG/DL. The reference range was not used to interpret this result as normal/abnormal. POTASSIUM (test code = 2823-3) 4.1 MEQ/L See_Comment [Automated messa ge] The system which generated this result transmitted reference range: 3.5-5.4 MEQ/L. The reference range was not used to interpret this result as normal/abnormal. PROTEIN, TOTAL (test code = 2885-2) 6.6 G/DL See_Comment [Automated messa ge] The system which generated this result transmitted reference range: 6.1-8.3 G/DL. The reference range was not used to interpret this result as normal/abnormal. AST (test code = 1920-8) 20 U/L See_Comment [Automated messa ge] The system which generated this result transmitted reference range: 9-40 U/L. The reference range was not used to interpret this result as normal/abnormal. ALT (test code = 1742-6) 12 U/L See_Comment [Automated messa ge] The system which generated this result transmitted reference range: 5-40 U/L. The reference range was not used to interpret this result as normal/abnormal. SODIUM (test code = 2951-2) 145 MEQ/L See_Comment [Automated messa ge] The system which generated this result transmitted reference range: 133-146 MEQ/L. The reference range was not used to interpret this result as normal/abnormal. CBC W/AUTO [id number] 00:00:00* Test Item Value Reference Range Interpretation Comme nts NUCLEATED RBCS (test code = 04956-0) 0.0 /100 WBC'S See_Comment [Automated messa ge] The system which generated this result transmitted reference range: 0.0 /100 WBC'S. The reference range was not used to interpret this result as normal/abnormal. ABSOLUTE EOSINOPHILS (test code = 80138-3) 0.11 K/UL See_Comment [Automated messa ge] The system which generated this result transmitted reference range: 0.00-0.50 K/UL. The reference range was not used to interpret this result as normal/abnormal. ABSOLUTE LYMPHOCYTES (test code = 67430-1) 1.40 K/UL See_Comment [Automated messa ge] The system which generated this result transmitted reference range: 1.00-4.00 K/UL. The reference range was not used to interpret this result as normal/abnormal. ABSOLUTE MONOCYTES (test code = 70975-9) 0.40 K/UL See_Comment [Automated messa ge] The system which generated this result transmitted reference range: 0.20-1.00 K/UL. The reference range was not used to interpret this result as normal/abnormal. ABSOLUTE NEUTROPHILS (test code = 29115-3) 2.83 K/UL See_Comment [Automated messa ge] The system which generated this result transmitted reference range: 1.50-7.50 K/UL. The reference range was not used to interpret this result as normal/abnormal. BASOPHILS (test code = 73000-9) 1.3 % EOSINOPHILS (test code = 21934-6) 2.3 % HEMATOCRIT (test code = 85312-3) 40.7 % See_Comment [Automated messa ge] The system which generated this result transmitted reference range: 34.0-45.0 %. The reference range was not used to interpret this result as normal/abnormal. HEMOGLOBIN (test code = 718-7) 13.4 G/DL See_Comment [Automated messa ge] The system which generated this result transmitted reference range: 11.5-15.5 G/DL. The reference range was not used to interpret this result as normal/abnormal. LYMPHOCYTES (test code = 87816-6) 29.2 % MCH (test code = 56527-4) 27.9 PG See_Comment [Automated messa ge] The system which generated this result transmitted reference range: 25.0-33.0 PG. The reference range was not used to interpret this result as normal/abnormal. MCHC (test code = 86575-5) 32.9 G/DL See_Comment [Automated messa ge] The system which generated this result transmitted reference range: 31.0-36.0 G/DL. The reference range was not used to interpret this result as normal/abnormal. MCV (test code = 63471-4) 84.8 fL See_Comment [Automated messa ge] The system which generated this result transmitted reference range: 80.0-99.0 fL. The reference range was not used to interpret this result as normal/abnormal. MONOCYTES (test code = 82387-0) 8.3 % NEUTROPHILS (test code = 42076-5) 58.9 % PLATELET COUNT (test code = 98286-7) 322 K/UL See_Comment [Automated messa ge] The system which generated this result transmitted reference range: 130-400 K/UL. The reference range was not used to interpret this result as normal/abnormal. RBC (test code = 21940-5) 4.80 M/UL See_Comment [Automated messa ge] The system which generated this result transmitted reference range: 3.80-5.40 M/UL. The reference range was not used to interpret this result as normal/abnormal. RDW (test code = 85102-4) 12.7 % See_Comment [Automated messa ge] The system which generated this result transmitted reference range: 11.5-15.0 %. The reference range was not used to interpret this result as normal/abnormal. WBC (test code = 40310-7) 4.8 K/UL See_Comment [Automated messa ge] The system which generated this result transmitted reference range: 3.5-11.0 K/UL. The reference range was not used to interpret this result as normal/abnormal. Wrist Left 3 ViewWrist Left 3 View Notes Date/Time Note Provider Source 2024-06-23 18:56:27 Patient care report called to [facility] LE END TRIMMER Casie Mason RN [facility] 2024-06-23 18:50:17 Radiology at bedside for ng tube confirmation, Per Dr Stanley RIVERA ok to use. [facility] 2024-06-23 17:59:15 Spoke with VALERY Arreola ETA 15 min LE END TRIMMER Domonique Tapia PCT [facility] 2024-06-23 11:27:31 Pt unable to urinate at this time. Hat collection device placed in TX7 toilet for when pt is able to give a sample LE END TRIMMER [facility] 2024-06-23 10:57:42 Pt arrived ambulatory for abd pain and vomiting since Sunday brown in color, last BM Sunday normal. I Saxena RN [facility] 2024-06-23 10:48:00 AdmissionCare Guideline: Intestinal Obstruction, Inpatient Based on the indications selected for the patient, the bed status of Inpatient was determined to be MET The following indications were selected as present at the time of evaluation of the patient: - Clinical Indications for Admission to Inpatient Care - Admission is indicated for ALL of the following: - Signs and symptoms of bowel obstruction (eg, vomiting, inability to tolerate PO intake, pain, distention) that are severe (feculent vomiting, Hypotension, electrolyte abnormality, evidence of bowel ischemia or suspected perforation), or persistent (eg, NG tube placed and will need to be continued, IV hydration support required) - Imaging study consistent with bowel obstruction (ie, alternative diagnosis not more likely) AdmissionCare documentation entered by: Edie Maloney [facility] [employer], 28th edition, Copyright ? 2023 [facility] [employer] [facility] All Rights Reserved. [id number]:00 [facility]
[2024-07-05] MEDS ORDERED: ONDANSETRON 4 MG/2 ML VIAL ONE ×2 (14:32→18:56)
[2024-07-05] MEDS ORDERED: NA CHLORIDE 0.9% 1,000 ML ONE (14:33)
[2024-07-05] MEDS ORDERED: MORPHINE 2 MG/ML SYR ONE ×2 (14:33→18:57)
[2024-07-05 14:40] LABS: Absolute Monocytes 0.7 K/uL (0.1-1.3); Basophils % 0.5 % (0-1.3); Eosinophils % 0.2 % (0-4.4); Hematocrit 37.1 % (36.0-45.0); Hemoglobin 12.4 g/dL (12.0-15.0); Lymphocytes % 15.2 % (15.3-44.8); MCH 26.5 pg (27.0-35.0); MCHC 33.3 g/dL (32.0-36.0); MCV 79.5 fL (80-100); MPV 8.4 fL (7.6-11.3); Monocytes % 10.7 % (3.3-12.3); Neutrophils % 73.4 % (41.7-73.7); Platelets 480 thou/uL (152-406); RBC Red Blood Cell Count 4.67 M/uL (3.86-4.86); Red Cell Distribution Width 14.9 % (12.1-15.2)
[2024-07-05 14:57] LABS: Albumin 2.7 g/dL (3.4-5.0); Albumin/Globulin Ratio 0.8 (1.1-1.8); Anion Gap 10.1 mEq/L (5.0-15.0); Bilirubin Total 0.4 mg/dL (0.2-1.0); Globulin 3.5 g/dL (2.3-3.5); Potassium 3.1 mEq/L (3.5-5.1); Protein, Total 6.2 g/dL (6.4-8.2)
--- NOTE | 2024-07-05 15:46 | RAD REPORT ---
EXAM: CT CHEST, ABDOMEN AND PELVIS WITH CONTRAST CLINICAL INDICATION: abd pain TECHNIQUE: CT chest, abdomen and pelvis was performed, following the administration of contrast, as p er department protocol. Axial, sagittal and coronal reconstructions were obtained. One or more of the following dose reduction techniques were used: Automated exposure control, adjustment of the mA a nd/or kV according to patient size, and/or iterative reconstruction. Unless otherwise specified, incidental findings do not require dedicated imaging follow-up. COMPARISON: No prior exam. FINDINGS: LUNGS: Linear atelectasis is present in the right lung base. Minimal atelectasis in the left lung bas e. PLEURA: Moderate right pleural effusion. MEDIASTINUM AND LYMPH NODES: No mediastinal mass or fluid collection. Normal size mediastinal, hilar, and axillary lymph nodes. Fluid distention of the esophagus noted. OSSEOUS STRUCTURES AND CHEST WALL: Intact. LIVER: Small low-density lesions superior medial right lobe of the liver measuring up to 9 mm. These are indeterminate. Gallbladder distention. PANCREAS: No mass, ductal dilation, or bouchra-pancreatic fluid. SPLEEN: Normal size. No focal lesion. ADRENALS: Normal; no mass. KIDNEYS: Normal size and contour. No hydronephrosis. URINARY BLADDER: Normal contour. GASTROINTESTINAL TRACT: Distention of the stomach is noted. There are multiple dilated small bowel lo ops present in the abdomen compatible with mechanical small bowel obstruction. Soft tissue is seen in the greater omentum. There is a significant irregular appearance to the rectosigmoid colon. Contra st is present in the colon as well. There is linear hyperdense material in the inferior pelvis adjacent to the colon. High density material also seen anteriorly in the omentum. Full detail in the lower abdomen and upper pelvis is limited. APPENDIX: Appendix not visualized, but no inflammatory changes in region of appendix. LYMPH NODES: Enlarged left inguinal lymph node measuring 21 mm. MUSCULOSKELETAL: Moderate lower lumbar degenerative changes. OTHER: Mild ascites. IMPRESSION: Moderate mechanical small bowel obstruction. 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 Exact source of the neoplastic process is somewhat difficult to determine but may be gynecologic in the pelvis or perhaps related to rectosigmoid colon malignancy. Low-density lesions in the right lobe of the liver superiorly suspicious for metastatic deposits. Thi s can be assessed further with MRI liver protocol. Moderate right pleural effusion with fluid distention of the esophagus. Additional findings as detailed above.
--- NOTE | 2024-07-05 16:59 | EDPHYS ---
Physician Documentation [facility] Name: Meredith Patton Age: 89 yrs Sex: Female : 1935 Arrival Date: 07/05/2024 Time: 13:39 Bed 2 Private MD: ED Physician Mahesh Rollins HPI: 07/05 16:59 This 89 yrs old Female presents to ER via Wheelchair with complaints of Abdominal Pain, rt Vomiting. 16:59 Patient had a recent admission to [facility] for about 1 week for a small bowel rt obstruction complicated by reported tumor. Patient states that they did not biopsy the tumor at that time. The patient states that she felt better, was discharged on Sunday, symptoms subsequently returned a few days ago with nausea, vomiting, abdominal pain. States that she had a bowel movement last yesterday. Denies other acute complaints at this time, symptoms are moderate in severity, no other aggravating or alleviating factors.. Historical: - Allergies: 13:53 No Known Allergies; aa5 - PMHx: 13:53 Hypercholesterolemia; Hypertensive disorder; Hypothyroidism; aa5 - Immunization history:: Adult Immunizations unknown. - Infectious Disease History:: Denies. - Social history:: Smoking status: Patient denies any tobacco usage or history of. - Family history:: not pertinent. ROS: 17:02 Constitutional: Negative for fever, chills, and weight loss, Cardiovascular: Negative rt for chest pain, palpitations, and edema, Respiratory: Negative for shortness of breath, cough, wheezing, and pleuritic chest pain, MS/Extremity: Negative for injury and deformity, Skin: Negative for injury, rash, and discoloration, Neuro: Negative for headache, weakness, numbness, tingling, and seizure, 17:02 Abdomen/GI: Positive for abdominal pain, nausea and vomiting, Exam: 17:02 Constitutional: This is a well developed, well nourished patient who is awake, alert, rt and in no acute distress. Head/Face: Normocephalic, atraumatic. Chest/axilla: Normal chest wall appearance and motion. Nontender with no deformity. No lesions are appreciated. Cardiovascular: Regular rate and rhythm with a normal S1 and S2. No gallops, murmurs, or rubs. Normal PMI, no JVD. No pulse deficits. Respiratory: Lungs have equal breath sounds bilaterally, clear to auscultation and percussion. No rales, rhonchi or wheezes noted. No increased work of breathing, no retractions or nasal flaring. Skin: Warm, dry with normal turgor. Normal color with no rashes, no lesions, and no evidence of cellulitis. MS/ Extremity: Pulses equal, no cyanosis. Neurovascular intact. Full, normal range of motion. Neuro: Awake and alert, GCS 15, oriented to person, place, time, and situation. Cranial nerves II-XII grossly intact. Motor strength 5/5 in all extremities. Sensory grossly intact. Cerebellar exam normal. Normal gait. 17:02 Abdomen/GI: Moderately distended, mild tenderness diffusely without rebound, guarding,, Vital Signs: 13:51 BP 151 / 75; Pulse 95; Resp 16 S; Temp 97.7(O); Pulse Ox 96% on R/A; Weight 46.72 kg aa5 (R); Height 5 ft. 0 in. (R); 15:41 BP 143 / 72; Pulse 93; Resp 20; Pulse Ox 100% on R/A; Pain 0/10; le1 16:55 BP 150 / 74; Pulse 90; Resp 21; Pulse Ox 95% on 1 lpm NC; Pain 0/10; le1 19:00 BP 159 / 83; Pulse 95; Resp 16; Temp 97.7(O); Pulse Ox 94% on 1 lpm NC; Pain 7/10; le1 13:51 Body Mass Index 20.12 (46.72 kg, 152.4 cm) aa5 15:41 Pain Scale: Adult le1 16:55 Pain Scale: Adult le1 19:00 Pain Scale: Adult le1 MDM: 14:02 Medical Screening Exam initiated rt 18:31 Differential diagnosis: Recurrent small bowel obstruction, tumor burden, rt carcinomatosis, electrolyte disturbance. Data reviewed: vital signs, nurses notes, lab test result(s), radiologic studies. Consideration of Admission/Observation Escalation of care including admission/observation considered. Management of patient was discussed with the following: Diamond Powder Mixer: Discussed with Dr. Lizama, general surgery on-call, recommends that we cannot biopsy here via radiologist and to transfer, I spoke with our radiologist, states that he would be unable to do so, will transfer patient for interventional radiology, biopsy. I considered the following discharge prescriptions or medication management in the emergency department Medications were administered in the Emergency Department. See MAR. Independent interpretation of the following test(s) in the Emergency Department CT Scan: My interpretation is SBO seen on interpretation of CT scan images. Care significantly affected by the following chronic conditions: Hypertension. Counseling: I had a detailed discussion with the patient and/or guardian regarding the historical points, exam findings, and any diagnostic results supporting the discharge/admit diagnosis, lab results, radiology results, the need to transfer to another facility. Response to treatment: the patient's symptoms have mildly improved after treatment. 07/05 14:13 Order name: CBC with Diff rt 07/05 14:13 Order name: CMP; Complete Time: 15:48 rt 07/05 14:13 Order name: Lipase; Complete Time: 15:48 rt 07/05 14:13 Order name: CT Chest, Abdomen, Pelvis - W/Contrast; Complete Time: 15:48 rt 07/05 14:13 Order name: IV Saline Lock; Complete Time: 14:39 rt 07/05 14:13 Order name: Labs collected and sent; Complete Time: 14:39 rt Administered Medications: 14:43 Drug: Ondansetron IVP 4 mg IVP once; over 2 minutes Route: IVP; Site: left antecubital; le1 15:26 Follow up: Response: No adverse reaction le1 14:43 Drug: NS 0.9% IV 1000 ml IV at 1 bolus Per protocol; to be given as a bolus over 60 le1 minutes Route: IV; Rate: 1 bolus; Site: left antecubital; 16:51 Follow up: Response: No adverse reaction; IV Status: Completed infusion; IV Intake: le1 1000ml 14:44 Drug: morphine IVP or IV 2 mg IVP once over 4 mins Route: IVP; Infused Over: 4 mins; le1 Site: left antecubital; 15:26 Follow up: Response: No adverse reaction; Pain is decreased le1 19:00 Drug: morphine IVP or IV 2 mg IVP once over 4 mins Route: IVP; Infused Over: 4 mins; le1 Site: left antecubital; 19:10 Follow up: Response: No adverse reaction; Pain is decreased le1 19:00 Drug: Ondansetron IVP 4 mg IVP once; over 2 minutes Route: IVP; Site: left antecubital; le1 19:10 Follow up: Response: No adverse reaction le1 Disposition Summary: 07/05/24 16:58 Transfer Ordered Notes: Transfer Location: [facility] rt Reason: Higher level of care rt Condition: Fair rt Problem: an ongoing problem rt Symptoms: are unchanged rt Accepting Physician: (07/05/24 19:12) le1 Diagnosis - Recurrent small bowel obstruction rt - Omental carcinomatosis rt Forms: - Medication Reconciliation Form rt - SBAR form rt Signatures: Dispatcher [employer] Susana Pizarro RN RN aa5 Mahesh Rollins MD MD rt Torri Temple RN RN le1 Corrections: (The following items were deleted from the chart) 19:12 16:58 rt le1
--- NOTE | 2024-07-05 16:59 | ER ---
Nurse's Notes [facility] Name: Meredith Patton Age: 89 yrs Sex: Female : 1935 Arrival Date: 07/05/2024 Time: 13:39 Bed 2 Private MD: Diagnosis: Recurrent small bowel obstruction;Omental carcinomatosis Presentation: 07/05 13:51 Chief complaint: Patient states: "I was seen at [facility] ER last week and they aa5 sent me to [facility] because they thought I had cancer but they told me to follow-up outpatient". Pt reports nausea/vomiting x 1 week ago, pt states "I can't keep any food down anymore and I am having pain". Coronavirus screen: nausea, vomiting. Ebola Screen: Patient denies travel to an Ebola-affected area in the 21 days before illness onset. Initial Sepsis Screen: Does the patient meet any 2 criteria? HR > 90 bpm. Does the patient have a suspected source of infection? No. Patient's initial sepsis screen is negative. Risk Assessment: Do you want to hurt yourself or someone else? Patient reports no desire to harm self or others. Onset of symptoms was June 2024. 13:51 Method Of Arrival: Wheelchair aa5 13:51 Acuity: CHITRA 3 aa5 Historical: - Allergies: 13:53 No Known Allergies; aa5 - PMHx: 13:53 Hypercholesterolemia; Hypertensive disorder; Hypothyroidism; aa5 - Immunization history:: Adult Immunizations unknown. - Infectious Disease History:: Denies. - Social history:: Smoking status: Patient denies any tobacco usage or history of. - Family history:: not pertinent. Screenin:[address] [facility] ED Fall Risk Assessment (Adult) History of falling in the last 3 months, le1 including since admission No falls in past 3 months (0 pts) Confusion or Disorientation No (0 pts) Intoxicated or Sedated No (0 pts) Impaired Gait No (0 pts) Mobility Assist Device Used No (0 pt) Altered Elimination No (0 pt) Score/Fall Risk Level 0 - 2 = Low Risk Oriented to surroundings, Maintained a safe environment, Educated pt \\T\\ family on fall prevention, incl call for assistance when getting out of bed, Assessed \\T\\ reinforced patient's understanding of fall precautions, Hourly rounding (assess needs \\T\\ fall precautionary measures) done, Used ambulatory aids as needed (educated on \\T\\ assisted with). Abuse screen: Denies threats or abuse. Denies injuries from another. Nutritional screening: No deficits noted. Tuberculosis screening: No symptoms or risk factors identified. Assessment: 14:44 General: Appears in no apparent distress. comfortable, Behavior is calm, cooperative, le1 appropriate for age. Pain: Complains of pain in abdomen Pain currently is 0 out of 10 on a pain scale. Quality of pain is described as aching, Pain began suddenly. Neuro: No deficits noted. Cardiovascular: No deficits noted. Respiratory: No deficits noted. GI: Reports Patient states she was recently diagnosed with cancer after having a stool blockage that was cleared while in hospital. Currently experiencing abd pain and nausea but has not constipation. last bowel movement yesterday and appeared form though small amount due to not eating. States vomit is yellow color. No active signs of bleeding. : No deficits noted. EENT: No deficits noted. Musculoskeletal: No deficits noted. Vital Signs: 13:51 BP 151 / 75; Pulse 95; Resp 16 S; Temp 97.7(O); Pulse Ox 96% on R/A; Weight 46.72 kg aa5 (R); Height 5 ft. 0 in. (R); 15:41 BP 143 / 72; Pulse 93; Resp 20; Pulse Ox 100% on R/A; Pain 0/10; le1 16:55 BP 150 / 74; Pulse 90; Resp 21; Pulse Ox 95% on 1 lpm NC; Pain 0/10; le1 19:00 BP 159 / 83; Pulse 95; Resp 16; Temp 97.7(O); Pulse Ox 94% on 1 lpm NC; Pain 7/10; le1 13:51 Body Mass Index 20.12 (46.72 kg, 152.4 cm) aa5 15:41 Pain Scale: Adult le1 16:55 Pain Scale: Adult le1 19:00 Pain Scale: Adult le1 ED Course: 13:44 Patient arrived in ED. al6 13:45 Mahesh Rollins MD is Attending Physician. rt 13:51 Arm band placed on. aa5 13:53 Triage completed. aa5 14:16 Torri Temple RN is Primary Nurse. le1 14:38 Initial lab(s) drawn, by me, sent to lab. Inserted saline lock: 20 gauge in left cm10 antecubital area, using aseptic technique. Blood collected. Flushed with 10 mL NS. 14:39 CBC with Diff Sent. cm10 14:39 CMP Sent. cm10 14:39 Lipase Sent. cm10 14:46 Patient has correct armband on for positive identification. Bed in low position. Call le1 light in reach. Side rails up X2. Adult w/ patient. Provided Education on: Patient informed to use call light if needed. 15:[address] via stretcher. le1 15:41 CT Chest, Abdomen, Pelvis - W/Contrast In Process Unspecified. EDMS 15:[address]. le1 16:56 ED physician to see patient. le1 17:02 [facility] called to initiate patient transfer, spoke with Josefa. ty 17:24 Oxygen administration via nasal cannula \\T\\ 1L/min. le1 17:41 [id number]. ty 18:20 [id number] packet given to Nurse. ty 18:[address] [facility] called for transport, ETA 15 Minutes. ty 19:10 No provider procedures requiring assistance completed. Patient transferred, IV remains le1 in place. Administered Medications: 14:43 Drug: Ondansetron IVP 4 mg IVP once; over 2 minutes Route: IVP; Site: left antecubital; le1 15:26 Follow up: Response: No adverse reaction le1 14:43 Drug: NS 0.9% IV 1000 ml IV at 1 bolus Per protocol; to be given as a bolus over 60 le1 minutes Route: IV; Rate: 1 bolus; Site: left antecubital; 16:51 Follow up: Response: No adverse reaction; IV Status: Completed infusion; IV Intake: le1 1000ml 14:44 Drug: morphine IVP or IV 2 mg IVP once over 4 mins Route: IVP; Infused Over: 4 mins; le1 Site: left antecubital; 15:26 Follow up: Response: No adverse reaction; Pain is decreased le1 19:00 Drug: morphine IVP or IV 2 mg IVP once over 4 mins Route: IVP; Infused Over: 4 mins; le1 Site: left antecubital; 19:10 Follow up: Response: No adverse reaction; Pain is decreased le1 19:00 Drug: Ondansetron IVP 4 mg IVP once; over 2 minutes Route: IVP; Site: left antecubital; le1 19:10 Follow up: Response: No adverse reaction le1 Medication: 19:11 VIS not applicable for this client. le1 Intake: 16:51 IV: 1000ml; Total: 1000ml. le1 Outcome: 16:58 ER care complete, transfer ordered by . rt 19:10 Transferred by ground EMS [place] [facility] form completed. le1 19:10 Condition: good 19:10 Discharge instructions given to patient, family, Instructed on the need for transfer, Demonstrated understanding of instructions, 19:12 Patient left the ED. le1 Signatures: Dispatcher [employer] EDMS Susana Lopez, RN RN aa5 Mahesh Rollins MD MD rt Flora Falk RN RN cm10 Terry Newman LaKendric, RN RN le1 Valorie Sheppard6 Corrections: (The following items were deleted from the chart) 15:27 15:26 BP 124 / 82; Pulse 63bpm; Resp 15bpm; Pulse Ox 100% RA; Pain 0/10, Adult; le1 le1 17:09 17:02 [facility] called to initiate patient transfer, spoke with elizabeth johnson
[2024-07-05 19:17] VITALS: TEMP 97.7
[2024-07-05 19:21] VITALS: BP 159/83; O2SAT 94
== END 2024-07-05 19:12 | disposition short-term general hospital (02) ==
LOC: ER 13:39
DX: K56.699 Other intestinal obstruction unspecified as to partial versus complete obstruction (principal); C48.1 Malignant neoplasm of specified parts of peritoneum; R18.8 Other ascites
CPT/HCPCS: 96361; 85025; 36415; 83690; 80053; 71260; 74177; 96375; 96374; 99285; Q9967; J2270 ×2; J2405 ×2; J7030